=== PATIENT | male | born 1945 | race Caucasian/White ===

== ENCOUNTER 2020-09-23 10:40 | Inpatient (IN) | payer MEDICARE, BC ==
[~2020-09-23] VITALS: Ht 170.2 cm; Wt 102.3 kg
[~2020-09-23 10:40] MED LIST: ASPIRIN E.C. 8181 MG PO; CEPHALEXIN500 M1 PO; LIPITOR 40MG TA40 MG PO; [UNRECOGNIZED DRUG - OTHER]
[2020-09-23 11:22] LABS: ALBUMIN 3.5 gm/dL (3.5-5.0); BASO % 0.2 % (0.0-2.0); BILIRUBIN,TOTAL 1.1 mg/dL (0.0-1.0); CALCIUM 8.2 mg/dL (8.4-10.2); CREATININE, serum 0.88 (0.66-1.25); GRAN % 74.6 % (42.2-75.2); HEMATOCRIT 44.9 % (42.0-52.0); HEMOGLOBIN 16.1 g/dl (13.5-18.0); LYMPH # 0.8 (1.2-3.4); LYMPH % 15.4 % (20.0-51.0); MEAN CELL VOLUME 83 fl (80.0-100.0); MEAN CORPUSCULAR HEMOGLOBIN 30 pg (27.0-31.0); MEAN CORPUSCULAR HGB CONC 36 g/dl (33.0-37.0); MEAN PLATELET VOLUME 10.9 fl (7.4-10.4); MONO # 0.5 (0.1-0.6); MONO % 8.5 % (1.7-9.3); PLATELET COUNT 165 K/mm3 (130-400); POTASSIUM 4.1 mmol/L (3.4-5.0); RED BLOOD COUNT 5.41 M/mm3 (4.20-5.60)
[2020-09-23 11:36] LABS: TROPONIN-I 0.02 ng/mL (0.000-0.035)
[2020-09-23 17:51] VITALS: BP 130/72; PULSE 81; TEMP 98.3
[2020-09-23] MEDS ORDERED: COZAAR 50MG50 MG/TAB PO (19:58)
[2020-09-23] MEDS ORDERED: VITAMIND3 5000 PO (19:59)
[2020-09-23] MEDS ORDERED: MASON NATURAL1200 MG PO (20:00)
[2020-09-23] MEDS ORDERED: THE MEDICINE S200 M2 PO (20:01)
[2020-09-23 20:46] VITALS: BP 137/72; PULSE 76; TEMP 97.7
[2020-09-23 23:35] VITALS: BP 130/69; PULSE 87; TEMP 98
[2020-09-24] VITALS (7 sets, daily range): BP systolic 126–150; BP diastolic 66–78; PULSE 76–92; TEMP 97.5–99
[2020-09-24 00:28] LABS: MUCOUS Present /lpf; PH 5 (5-8); SQUAMOUS EPITHELIAL 0-2 /hpf; URINE APPEARANCE Hazy; URINE BACTERIA Rare /hpf; URINE BILIRUBIN Negative (NEGATIVE); URINE BLOOD 1+ (NEGATIVE); URINE COLOR Yellow; URINE GLUCOSE 3+ (NEGATIVE); URINE KETONE Negative (NEGATIVE); URINE LEUKOCYTE ESTERASE Negative (NEGATIVE); URINE NITRATE Negative (NEGATIVE); URINE PROTEIN(semi-quant) 1+ (NEGATIVE); URINE RBC 0-2 /hpf; URINE UROBILINOGEN Negative (NEGATIVE)
[2020-09-24 00:40] LABS: COLLECTION METHOD CLEAN CATCH
--- NOTE | 2020-09-24 05:38 | NUR ---
PT HAD UNEVENTFUL NIGHT, 02 5L OXYMASK SATURATING OVER 94 PERCENT. PT DISPLAYS MILD DYSPNEA ON EXERTION AND OF YET NON PRODUCTIVE COUGH, PT DENIES PAIN,N,V,D AND HAS REMAINED AFEBRILE. PT STATES " I FEEL MUCH BETTER FROM PREVIOUS DAYS." THIS NURSE REVIEWED POC WITH PT AND , TELEPHONICALLY, ALL QUESTIONS ANSWERED. PT EXPRESSES NO ADDITIONAL NEEDS AT THIS TIME.
[2020-09-24 08:09] LABS: CREATININE, serum 0.86 (0.66-1.25); POTASSIUM 4.4 mmol/L (3.4-5.0)
--- NOTE | 2020-09-24 09:05 | NUR ---
The patient is COVID positive. SW contacted the patient to discuss discharge plan. The patient lives in [place] with his , Angie (ph#[phone]). He reports independence with ADLs and does not have any DME. The patient's PCP is Dr. Ney Singh and he receives his medications from [facility] in [facility]. He reports no difficulties obtaining his meds. The patient does not have a DPOA-HC in EMR, but he states that he does have one completed and that the form is at home. He states that his designated his . The patient plans to return home with his upon discharge. He is currently on 5 liters of oxygen. SW to continue to monitor. *Discharge plan: home with *
--- NOTE | 2020-09-24 09:11 | NUR ---
Pt assessment complete. Pt is sitting on the side of the bed, he is A/O x4. His breathing is even and unlabored on 5L O2 via OM, switched to NC for breakfast. Pt denies SOB at this time. He denies any pain. Reports he is going to attempt to ambulate in his room more frequently today. Denies diarrhea. NO further needs at this time. Call light within reach.
--- NOTE | 2020-09-24 18:58 | NUR ---
Pt now on airvo. Discussed Covid and breathing issues with patient and updated pt's family. Pt does not feel SOB despite requiring higher oxygen. No pain through the day. Continues to have a good appetite, no diarrhea. POC discussed with patient who verbalizes understanding. Denies needs at this time. Call light within reach.
--- NOTE | 2020-09-24 21:13 | NUR ---
daughter kay updated on pt status.
--- NOTE | 2020-09-24 21:36 | NUR ---
ALERT AND OX4. DENIES ANY PAIN, SOA OR DIZZY. STATES FEELS BETTER SINCE NOT RUNNING FEVERS ANYMORE. POC DICUSSED. PM MEDS GIVEN. CALL LIGHT WI REACH. REMAINS ON AIRVO. NEEDS MET.
[2020-09-25 03:43] VITALS: BP 126/69; PULSE 75; TEMP 98
--- NOTE | 2020-09-25 05:00 | NUR ---
RESTED THOUGH THE NIGHT WITHOUT INCIDENT. NEEDS MET .
[2020-09-25 08:41] VITALS: BP 132/71; PULSE 76; TEMP 98.3
--- NOTE | 2020-09-25 10:56 | NUR ---
Patient laying with his head at the opposite end of the bed because that was more comfortable for him. Patient is wanting airvo taken off and feels that it is interfering with his sleep, but understands it cannot come off. This RN and Dr. Gutierrez explained to the patient that he needed the airvo. Patient has no other complaints at this time.
[2020-09-25 12:47] VITALS: BP 129/68; PULSE 79; TEMP 97.8
[2020-09-25 13:12] LABS: ARTERIAL BLD GAS O2 SATURATION 96.4 % (92-100); ARTERIAL BLD GAS TCO2 CT 25.5; ARTERIAL BLOOD GAS BASE EXCESS 1.4 (-2-2); ARTERIAL BLOOD GAS HCO3 24.5 meq/L (22-26); ARTERIAL BLOOD GAS PCO2 34.8 mmHg (35-45); ARTERIAL BLOOD GAS PO2 79.3 mmHg (80-100); ARTERIAL BLOOD GAS pH 7.47 (7.35-7.45)
[2020-09-25 16:00] VITALS: BP 151/73; PULSE 85; TEMP 98.9
--- NOTE | 2020-09-25 18:48 | NUR ---
Patient has not called for anything today. Patient was started on remdesivir and handled it well. Patient was assisted to the recliner by this RN without any difficulties. The patient's did call 3 times for updates, and his daughter called 4 times. Patient's family mentioned that they would like for him to be transferred to [facility]. Dr. Gutierrez was notified of this. Family was reassured that patient was handling treatments well at this time.
--- NOTE | 2020-09-25 19:05 | NUR ---
Received report from Leann. Patient awake, sitting in the recliner. No needs at this time.
[2020-09-25 19:58] VITALS: BP 133/58; PULSE 79; TEMP 98.7
--- NOTE | 2020-09-25 21:00 | NUR ---
Patient states that he will sleep tonight in the recliner. He is still on Airvo at 45L. Noted to have +1 BLE edema and he states that is started only today. Asked patient if the hospitalist who made their rounds awhile ago was aware about this and he said no. He said he might have the edema due to the [place] that he ate awhile ago. He is asking for sleeping pills as well. Called Carmela DOMINGUEZ and she ordered Melatonin and krishna hose. Explained to patient the orders but he refused to wear the tedhose saying the swelling is going down.
[2020-09-25 23:33] VITALS: BP 118/62; PULSE 80; TEMP 98.2
[2020-09-26 03:35] VITALS: BP 122/71; PULSE 76; TEMP 98
--- NOTE | 2020-09-26 05:58 | NUR ---
Patient states his sleep was better tonight. He is still on Airvo at 45L. He did have bath wipes this morning. Gown was changed. He denies pain.
[2020-09-26 08:23] VITALS: BP 131/66; PULSE 79; TEMP 98.1
--- NOTE | 2020-09-26 08:35 | NUR ---
Scheduled medications given. Shift assessment preformed. Patient currently requiring 45 L of O2 via airvo. Dry cough noted when patient is deep breathing. Patient denies any N/V/D or pain. No skin issues noted. VSS. Will continue to monitor. Call light in reach.
[2020-09-26 12:00] VITALS: BP 135/74; PULSE 78; TEMP 98
--- NOTE | 2020-09-26 18:00 | NUR ---
Patient has had a good day. Scheduled medications given. Remdesvir started. Dr. Carrillo updated on patient's status. Patient still requiring 45L of O2 via airvo. VSS. Patient denies any pain, discomfort, or further needs at this time. Will continue to monitor. Call light in reach.
[2020-09-26 20:02] VITALS: BP 155/67; PULSE 78; TEMP 98.3
[2020-09-27] VITALS (7 sets, daily range): BP systolic 122–146; BP diastolic 62–79; PULSE 64–85; TEMP 97.8–98.5
--- NOTE | 2020-09-27 07:00 | NUR ---
Patient had unventful night. He is still on Airvo at 45L. He states he was able to sleep well tonight. He has been in the recliner most of the day and sleep in there. He denies pain.
--- NOTE | 2020-09-27 08:34 | NUR ---
Pt assessment complete. Pt is ambulating from the bathroom at this time. He is A/O x4. His breathing is tachypneic, SOB on exertion. Continues on the Airvo. Discussed with patient about resting when feeling winded. He denies any pain. No N/V/D. No further needs.
--- NOTE | 2020-09-27 18:26 | NUR ---
Uneventful day, patient reports he feels more wore out today. Continues on Airvo. No pain throughout the day. Needs met, call light within reach.
[2020-09-28 04:53] VITALS: BP 141/70; PULSE 88; TEMP 98.6
--- NOTE | 2020-09-28 05:53 | NUR ---
Patient slepy in reclining cahir the whole night. He used airvo at 45L @ 30%. He denies pain or SOB. He gets up to the bathroom by himself. No complains noted overnight. Call light is within reach. Continue to follow.
[2020-09-28 08:40] VITALS: BP 142/73; PULSE 84; TEMP 98.1
--- NOTE | 2020-09-28 08:45 | NUR ---
SHIFT ASSESSMENT COMPLETED. IV TO RIGHT FOREARM IS PATENT. PT SITTING COMFORTABLY IN CHAIR EATING BREAKFAST. PT DENIES ANY PAIN OR SOB. LUNG SOUNDS CLEAR TO AUSCULTATION IN ALL LOBES. PT DENIES BREATHING FEELING LABORED. ON AIRVO AT 35L/45%. BOWEL SOUNDS ACTIVE IN ALL FOUR QUADRANTS. HEART RATE AND RHYTHM REGULAR. PULSES 2+. MILD +1 EDEMA TO BILATERAL LOWER EXTREMITIES, TRICE HOSE ARE ON. WILL CONTINUE TO MONITOR.
[2020-09-28 10:54] LABS: HEMATOCRIT 45.5 % (42.0-52.0); HEMOGLOBIN 15.9 g/dl (13.5-18.0); MEAN CELL VOLUME 85 fl (80.0-100.0); MEAN CORPUSCULAR HEMOGLOBIN 30 pg (27.0-31.0); MEAN CORPUSCULAR HGB CONC 35 g/dl (33.0-37.0); MEAN PLATELET VOLUME 10.3 fl (7.4-10.4); PLATELET COUNT 376 K/mm3 (130-400); RED BLOOD COUNT 5.37 M/mm3 (4.20-5.60); REDCELL DISTRIBUTION WIDTH-CV 13.2 % (11.5-14.5)
[2020-09-28 11:00] LABS: CREATININE, serum 0.74 (0.66-1.25); POTASSIUM 4.2 mmol/L (3.4-5.0)
[2020-09-28 11:20] LABS: LYMPHOCYTE 9 % (20.0-51.0); NEUTROPHILS 86 % (42.0-75.2); PLATELET ESTIMATE NORMAL (NORMAL)
[2020-09-28 11:53] VITALS: BP 145/81; PULSE 74; TEMP 98.5
[2020-09-28 16:14] VITALS: BP 135/71; PULSE 76; TEMP 98
--- NOTE | 2020-09-28 17:13 | NUR ---
PT RESTING COMFORTABLY IN CHAIR. IV ANTIBIOTICS ADMINISTERED PER ORDERS. AIRVO BEING TITRATED DOWN, IS AT 45L/49% CURRENTLY. PT DENIES ANY PAIN OR DISCOMFORT.
[2020-09-28 20:29] VITALS: BP 125/60; PULSE 69; TEMP 98.1
[2020-09-28 23:52] VITALS: BP 137/66; PULSE 80; TEMP 97.9
[2020-09-29 04:01] VITALS: BP 114/56; PULSE 60; TEMP 97.5
--- NOTE | 2020-09-29 05:36 | NUR ---
PT AFEBRILE OVER NIGHT, VSS, 02 AIRVO 45L FIO2 49 PERCENT. PT DENIES PAIN,N,V,D. PT CONTINUES WITH MILDLY PRODUCTIVE COUGH. PT EXPRESSES NO ADDITONAL NEEDS AT THIS TIME. CALL LIGHT WITHIN REACH.
[2020-09-29 08:38] VITALS: BP 144/69; PULSE 70; TEMP 98.3
--- NOTE | 2020-09-29 09:49 | NUR ---
PT RESTING COMFORTABLY IN CHAIR. IV IS PATENT. MORNING MEDICATIONS GIVEN. LUNG SOUNDS ARE DIMENISHED UPON AUSCULTATION. BOWEL SOUNDS ARE PRESENT IN ALL FOUR QUADRANTS. HEART RATE AND RHYTHM ARE NORMAL. AIRVO IS SET AT 40L/55%. PATIENT DENIES ANY PAIN OR SOB. +1 EDEMA ON BILATERAL LOWER LEGS. WILL CONTINUE TO MONITOR.
[2020-09-29 12:36] VITALS: BP 141/65; PULSE 79; TEMP 98
--- NOTE | 2020-09-29 14:26 | NUR ---
The patient is down to 5 liters of oxygen now. SW contacted the patient's , Angie, to follow up and review d/c plan. Angie is glad the patient is down to 5 liters of oxygen and states that she has no questions or concerns for SW at this time. She states plan is still for the patient to return back home with her upon discharge. SW to continue to follow. *Discharge plan: home with .
[2020-09-29 18:14] VITALS: BP 160/58; PULSE 85; TEMP 97.9
[2020-09-30 00:24] VITALS: BP 122/56; PULSE 73; TEMP 98.4
[2020-09-30 03:48] VITALS: BP 117/55; PULSE 75; TEMP 98.3
--- NOTE | 2020-09-30 06:07 | NUR ---
PT HAD UNEVENTFUL NIGHT, PT REMAINED AFEBRILE, DENIES PAIN,N,V,D. 02 5L HIGH FLOW NC SATURATING 90-93 PERCENT. PT EXPRESSES NO ADDITIONAL NEEDS AT THIS TIME. CALL LIGHT WITHIN REACH.
[2020-09-30 08:40] VITALS: BP 144/72; PULSE 79; TEMP 99
--- NOTE | 2020-09-30 09:28 | NUR ---
PT RESTING COMFORTABLY IN CHAIR. IV IS PATENT. LUNG SOUNDS ARE DIMINISHED UPON AUSCULTATION. MORNING MEDS GIVEN. EDEMA TO BILATERAL LOWER LEGS +1. O2 IS ON 5L AD PATIENT IS SATURATION IS AT 91%.. NO COMPLAINTS OF PAIN REPORTED. WILL CONTINUE TO MONITOR.
[2020-09-30 11:45] VITALS: BP 159/67; PULSE 84; TEMP 98.4
[2020-09-30 16:28] VITALS: BP 154/72; PULSE 91; TEMP 98.4
[2020-09-30 21:00] VITALS: BP 124/63; PULSE 80; TEMP 98.4
[2020-10-01 01:30] VITALS: BP 124/64; PULSE 73; TEMP 98.2
[2020-10-01 05:45] VITALS: BP 130/60; PULSE 83; TEMP 98.3
[2020-10-01 06:41] LABS: HEMOGLOBIN 16.3 g/dl (13.5-18.0); MEAN CELL VOLUME 87 fl (80.0-100.0); MEAN CORPUSCULAR HEMOGLOBIN 30 pg (27.0-31.0); MEAN CORPUSCULAR HGB CONC 34 g/dl (33.0-37.0); MEAN PLATELET VOLUME 10.7 fl (7.4-10.4); PLATELET COUNT 393 K/mm3 (130-400); REDCELL DISTRIBUTION WIDTH-CV 13.2 % (11.5-14.5)
[2020-10-01 06:46] LABS: CALCIUM 9.3 mg/dL (8.4-10.2); CREATININE, serum 0.84 (0.66-1.25); MAGNESIUM 2.1 mg/dL (1.6-2.3); POTASSIUM 4.4 mmol/L (3.4-5.0)
[2020-10-01 08:09] VITALS: BP 145/77; PULSE 99; TEMP 98
[2020-10-01 08:18] LABS: BAND 4 % (0-10); LYMPHOCYTE 13 % (20.0-51.0); METAMYELOCYTE 6 % (0-0); NEUTROPHILS 61 % (42.0-75.2); PLATELET ESTIMATE NORMAL (NORMAL)
[2020-10-01 11:59] VITALS: BP 135/72; PULSE 97; TEMP 97.9
[2020-10-01 16:06] VITALS: BP 131/71; PULSE 106; TEMP 98.2
[2020-10-01 19:33] VITALS: BP 147/73; PULSE 95; TEMP 98.2
--- NOTE | 2020-10-01 21:21 | NUR ---
Pt has been in a good spirit. He has been usin IS pretty frequent. Currently on 5 L sating at 93. Will continue to monitor.
[2020-10-02 00:32] VITALS: BP 138/65; PULSE 76; TEMP 98.1
[2020-10-02 03:00] VITALS: BP 108/51; PULSE 80; TEMP 98.1
[2020-10-02 08:00] VITALS: BP 119/70; PULSE 81; TEMP 97.6
--- NOTE | 2020-10-02 08:00 | NUR ---
Patient sitting up in a chair in front of the TV. A&Ox3. VSS 5L NC O2. No reported SOB. Patient independent in the room. Denies pain and disomfort. Droplet/contact precautions in place. No further needs expressed from the patient. Call light within reach
[2020-10-02 11:31] VITALS: BP 131/69; PULSE 93; TEMP 97.7
--- NOTE | 2020-10-02 12:12 | NUR ---
An exercise oximetry was ordered. RT notified SW that the patient is requiring 8 liters of oxygen with ambulation. The patient is not ready for d/c.
[2020-10-02 15:39] VITALS: BP 132/77; PULSE 91; TEMP 98.1
--- NOTE | 2020-10-02 18:23 | NUR ---
Patient had an uneventful day. VSS 5L NC O2. No reported SOB. IV CDI. Denies pain and discomfort. No further needs expressed from the patient. Call light within reach. Droplet/contact precautions in place.
[2020-10-02 20:09] VITALS: BP 131/74; PULSE 93; TEMP 98.1
--- NOTE | 2020-10-02 22:56 | NUR ---
Patient sitting up in the chair upon enter the room. Shift assessment completed. Patient alert and oriented. Patient denies any pain or discomfort. Denies SOB or dyspnea at this time. Patient currently on 5L oxygen via NC. Breathing even and unlabored. All scheduled meds given per MAY. Call light within reach. Will continue to monitor.
[2020-10-03 00:15] VITALS: BP 123/64; PULSE 72; TEMP 97.9
[2020-10-03 04:13] VITALS: BP 127/62; PULSE 84; TEMP 97.9
[2020-10-03 07:55] VITALS: BP 150/65; PULSE 110; TEMP 97.9
--- NOTE | 2020-10-03 09:41 | NUR ---
Pt awake and alert upon entry, sitting in the recliner, no C/O pain at this time, on 8 LPM NC. Shift assessments complete, left Pt in recliner, call light in reach.
[2020-10-03 10:58] VITALS: BP 176/77; PULSE 107; TEMP 97.8
[2020-10-03 15:39] VITALS: BP 126/58; PULSE 92; TEMP 97.9
[2020-10-03 21:33] VITALS: BP 131/77; PULSE 100; TEMP 98.3
--- NOTE | 2020-10-03 22:05 | NUR ---
Patient assessed around 2100. Prior to assessement, RT stated that patient was on oxygen at 6 L/min via NC. During assessment, oxygen level 88-90%. Increased oxygen at 7 L/min via NC, and increased to 91-93%. RT updated. LS CTA in upper lobes, diminished in lower. Denies having SOB and dyspnea. Patient voices no questions, needs, or concerns at this time. Sitting up in chair with call light within reach.
[2020-10-04] VITALS (8 sets, daily range): BP systolic 107–149; BP diastolic 57–81; PULSE 81–108; TEMP 97.6–98.8
--- NOTE | 2020-10-04 05:24 | NUR ---
Patient continues to wear oxygen at 7 L/min. Denies having pain and discomfort. Voices on questions, needs, or concerns at this time. Call light within reach.
--- NOTE | 2020-10-04 08:34 | NUR ---
Pt awake and sitting in chair at bedside, no C/O pain at this time. Shift assessment complete, left Pt sitting with breakfast, call light in reach.
--- NOTE | 2020-10-04 22:26 | NUR ---
Patient sitting up in the chair upon enter the room. Shift assessment completed. Patient alert and oriented. Patient denies any pain or discomfort. Denies SOB or dyspnea while at rest. Patient currently on 7L oxygen via NC. Breathing even and unlabored. All scheduled meds given per MAY. Call light within reach. Will continue to monitor.
[2020-10-05 04:16] VITALS: BP 114/49; PULSE 92; TEMP 97.5
--- NOTE | 2020-10-05 05:50 | NUR ---
Patient on oxygen 5L via high flow NC this morning. No acute respiratory distress noted throughout the night. Call light within reach. Will continue to monitor.
[2020-10-05 07:51] LABS: HEMATOCRIT 44.2 % (42.0-52.0); HEMOGLOBIN 15.2 g/dl (13.5-18.0); MEAN CELL VOLUME 87 fl (80.0-100.0); MEAN CORPUSCULAR HEMOGLOBIN 30 pg (27.0-31.0); MEAN CORPUSCULAR HGB CONC 34 g/dl (33.0-37.0); MEAN PLATELET VOLUME 10.7 fl (7.4-10.4); PLATELET COUNT 304 K/mm3 (130-400); RED BLOOD COUNT 5.07 M/mm3 (4.20-5.60); REDCELL DISTRIBUTION WIDTH-CV 13.5 % (11.5-14.5)
[2020-10-05 08:18] LABS: C-REACTIVE PROTEIN 4.4 mg/dL (0.0-0.9); CALCIUM 9.2 mg/dL (8.4-10.2); CREATININE, serum 1.15 (0.66-1.25); MAGNESIUM 2.2 mg/dL (1.6-2.3); POTASSIUM 4.7 mmol/L (3.4-5.0)
--- NOTE | 2020-10-05 08:24 | NUR ---
Pt awake and sitting in chair at bedside, no C/O pain at this time, currently at 5 LPM, 92% saturation. Shift assessment complete, left Pt call light in reach.
[2020-10-05 09:00] VITALS: BP 123/55; PULSE 102; TEMP 98.3
[2020-10-05 09:27] LABS: BAND 1 % (0-10); EOSINOPHIL 1 % (0-4); LYMPHOCYTE 21 % (20.0-51.0); MYELOCYTE 2 % (0-0); NEUTROPHILS 60 % (42.0-75.2); PLATELET ESTIMATE NORMAL (NORMAL)
--- NOTE | 2020-10-05 10:33 | NUR ---
SW staffed with the hospitalist about whether the patient would be a candidate for [facility]. The patient's O2 needs remain high and have not been able to titrate down. JENNIFER contacted and faxed a referral Hesham at [facility]. Awaiting screen.
--- NOTE | 2020-10-05 11:01 | NUR ---
pt was not put on room air for this test. He was ambulated on 5lpm/nc for approximatly 50 feet. Lowest spo2 was 89% on 5lpm/nc which the patient recovered to 93% within 30 seconds of sitting down. Pt tolerated well with minimaL SOB noted.
[2020-10-05] MEDS ORDERED: RT Albuterol HFA MDI IH ×2 (11:25)
[2020-10-05] MEDS ORDERED: PROAIR HFA0.09 MG/AC IH (11:27)
[2020-10-05] MEDS ORDERED: OXYGEN (11:29)
[2020-10-05 11:50] VITALS: BP 111/60; PULSE 102; TEMP 98.7
--- NOTE | 2020-10-05 12:06 | NUR ---
Hesham, at [facility], reports that they would be able to accept the patient at their [place] location. JENNIFER notified the hospitalist. The hospitalist ordered another exercise ox and the patient qualified for 5 liters of oxygen and is able to go home. The hospitalist recommends home health. JENNIFER contacted the patient's , Angie, to review the above. Angie is in agreement to the plan. She chose [facility] to obtain the oxygen and states that she will mushroom picker the oxygen before coming to mushroom picker the patient. JENNIFER informed her of the different home health agencies that serve [place], based off of Medicare.gov. Angie chose [facility]. JENNIFER contacted and faxed and emailed the patient's oxygen order to Caryl at [facility]. Caryl requests a mushroom picker time after 1500. JENNIFER notified the patient's of this. JENNIFER contacted and faxed a referral to Carri at [facility]. Awaiting screen.
--- NOTE | 2020-10-05 13:27 | NUR ---
Carri, at [facility], reports that they are able to accept the patient for services and that she will be contacting the patient's today to set up a visit with him.
--- NOTE | 2020-10-05 14:16 | NUR ---
The patient is to discharge back home with his today, 10/05, with home health services for retirement/PT/OT from [facility]. SW notified and faxed d/c orders to Carri at [facility]. No additional needs at this time.
--- NOTE | 2020-10-05 16:00 | NUR ---
Pt discharged to home, discussed discharge information with Pt and spouse.. Escorted Pt to entrance, assisted into vehicle. Pt left with spouse via private transportation.
== END 2020-10-05 16:00 | disposition home or self-care (01) | DRG 177 ==
LOC: COL.ER 10:40 → MEDICAL 12:20
PROVIDERS: Emergency Medicine; Internal Medicine
PROC: XW033E5 Introduction of Remdesivir Anti-infective into Peripheral Vein, Percutaneous Approach, New Technology Group 5 (ICD-10-PCS; principal; 2020-09-23)
DX: U07.1 COVID-19 (principal); J96.01 Acute respiratory failure with hypoxia; J12.82 Pneumonia due to coronavirus disease 2019; R73.9 Hyperglycemia, unspecified; I10 Essential (primary) hypertension; Z79.82 Long term (current) use of aspirin
CPT/HCPCS: 99222-AI; 99232-AI; 99233-AI; 99239; A9284; J0696; J1100; J1650; J7050; J8540

== ENCOUNTER 2020-10-14 17:32 | Inpatient (IN) | payer MEDICARE, BC ==
[~2020-10-14] VITALS: Ht 182.9 cm; Wt 99.2 kg
[~2020-10-14 17:32] MED LIST changes: +COZAAR 50MG50 MG/TAB PO; +MASON NATURAL1200 MG PO; +OXYGEN; +PROAIR HFA0.09 MG/AC IH; +RT Albuterol HFA MDI IH; +THE MEDICINE S200 M2 PO; +VITAMIND3 5000 PO
[2020-10-14 18:41] LABS: HEMATOCRIT 46.1 % (42.0-52.0); HEMOGLOBIN 15.5 g/dl (13.5-18.0); MEAN CELL VOLUME 87 fl (80.0-100.0); MEAN CORPUSCULAR HEMOGLOBIN 29 pg (27.0-31.0); MEAN CORPUSCULAR HGB CONC 34 g/dl (33.0-37.0); MEAN PLATELET VOLUME 9.9 fl (7.4-10.4); PLATELET COUNT 242 K/mm3 (130-400); RED BLOOD COUNT 5.28 M/mm3 (4.20-5.60); REDCELL DISTRIBUTION WIDTH-CV 13.2 % (11.5-14.5)
[2020-10-14 18:57] LABS: ALANINE AMINOTRANSFERASE 179 U/L (4-49); ALBUMIN 3.7 gm/dL (3.5-5.0); ALKALINE PHOSPHATASE 126 U/L (50-136); AST,SGOT 71 U/L (15-37); BILIRUBIN,TOTAL 0.5 mg/dL (0.0-1.0); BLOOD UREA NITROGEN 16 mg/dL (9-20); CALCIUM 9.5 mg/dL (8.4-10.2); CARBON DIOXIDE 27 mmol/L (22-30); CHLORIDE 100 mmol/L (98-107); CREATININE, serum 0.85 (0.66-1.25); GLUCOSE 129 mg/dL (74-106); POTASSIUM 4.5 mmol/L (3.4-5.0); TOTAL PROTEIN 7.9 gm/dL (6.4-8.2)
[2020-10-14 18:59] LABS: ANION GAP 10 mmol/L (7-16); SODIUM 137 mmol/L (137-145)
[2020-10-14 19:21] LABS: TROPONIN-I < 0.012 ng/mL (0.000-0.035)
[2020-10-14 19:23] LABS: BAND 5 % (0-10); EOSINOPHIL 2 % (0-4); LYMPHOCYTE 21 % (20.0-51.0); MYELOCYTE 2 % (0-0); NEUTROPHILS 62 % (42.0-75.2); PLATELET ESTIMATE NORMAL (NORMAL)
--- NOTE | 2020-10-14 23:46 | NUR ---
Vancomycin Initial Dosing Pharmacy Note Ordering provider: Angel Gallagher MD Indication/duration: PNA - 7 days Relevant comorbidities: HTN, recent COVID LABS: WBC = 10.5, RVP = negative, spO2 = 93% on 5 L, T = 98.3 F Recommendation: Will draw troughs and follow levels. Loading dose: 2 grams Maintenance dose: 1.5 grams every 12 hours Trough goal: 15-20 ug/mL
[2020-10-15] VITALS (7 sets, daily range): BP systolic 112–163; BP diastolic 48–84; PULSE 95–119; TEMP 97.4–98.9
[2020-10-15] MEDS ORDERED: CLARITIN 1010 MG/TAB PO (01:38)
--- NOTE | 2020-10-15 01:55 | NUR ---
PT ARRIVED ON UNIT AT THIS TIME. ADMISSION ASSESSMENTS COMPLETED. PT ORIENTED TO ROOM. PT ON OXYGEN 8L HIGH FLOW NC AND O2 SATURATION IS 97%. PT HAS NO COMPLAINTS OF PAIN. PT HAS IV ANTIBIOTICS RUNNING AT THIS TIME. CALL LIGHT WITHIN REACH. WILL CONTINUE TO MONITOR.
[2020-10-15 05:07] LABS: COLLECTION METHOD CLEAN CATCH
[2020-10-15 05:13] LABS: PH 6 (5-8); SQUAMOUS EPITHELIAL None Seen /hpf; URINE APPEARANCE Clear; URINE BACTERIA None Seen /hpf; URINE BILIRUBIN Negative (NEGATIVE); URINE BLOOD Negative (NEGATIVE); URINE COLOR Yellow; URINE GLUCOSE Negative (NEGATIVE); URINE KETONE Negative (NEGATIVE); URINE LEUKOCYTE ESTERASE Negative (NEGATIVE); URINE NITRATE Negative (NEGATIVE); URINE PROTEIN(semi-quant) Negative (NEGATIVE); URINE RBC 0-2 /hpf; URINE UROBILINOGEN Negative (NEGATIVE)
--- NOTE | 2020-10-15 07:50 | NUR ---
PT PLEASANT AOX4, DENIES PAIN, PT SET UP FOR BREAKFAST, ANTIBIOTICS INFUSING, OTHER MEDICATIONS GIVEN, ASSESSMENT PERFORMED, NO OTHER NEEDS. INFECTION CONTROL NURSE CLEARED PT FROM ISOLATION, PT ALERTED TO THIS AND HE SAID HE WOULD CALL HIS TO VISIT FOR HIS VISITOR, NO OTHER NEEDS
--- NOTE | 2020-10-15 09:42 | NUR ---
From prior records patient reported COV -like symptoms began September 16 with positive test recorded September 22. Patient had been known exposure to positive individuals and reported having no COVID immunization. Patient is 29 days from reported symptom onset and 23 days post first known positive test. Will discontinue COVID isolation precautions. Caution staff reminder for patient to apply mask when staff in room and staff to wear their masks at all times. Rajni Rahman RN
--- NOTE | 2020-10-15 10:48 | NUR ---
CONSULT CALLED FOR ID
--- NOTE | 2020-10-15 11:56 | NUR ---
JENNIFER's met with the patient and his , Angie (ph#[phone]), to discuss discharge plan and re-admit. The patient recently discharged from the hospital on 10/02 and returned home with his with home oxygen from [facility] and home health services from [facility] for half-way/PT/OT. The patient states that things at home were fine, but his oxygen sats kept dropping. He then presented back to the ER. The patient lives in [place] with his . He reports independence with ADLs and does not have any assistive devices. He has home oxygen from [facility] and home health servics from [facility]. JENNIFER attempted to contact Hakan at [facility]. JENNIFER left him a voicemail and faxed over updates. The patient's PCP is Dr. Ney Singh and he receives his medications from [facility] in [place]. He reports no difficulties obtaining his meds. The patient does not have a DPOA-HC in EMR, but he states that he does have one completed and that it designates his . The patient plans to return home with his upon discharge and resume home health services from [facility]. The hospitalist then notified JENNIFER that he would like a referral sent to [facility]. The hospitalist states that he will talk to the patient and his about his recommendation. JENNIFER contacted and faxed a referral to Hesham at [facility]. Awaiting screen.
--- NOTE | 2020-10-15 18:11 | NUR ---
PT ON 5L NC, REPORTS SOB WITH ACTIVITY, DENIES PAIN, VITALS STABLE, INSULIN GIVEN, EDUCATED ON SIDE EFFECTS OF SOLUMEDROL WITH INC SUGARS. PT HAS GOOD APPETITE, PT FAMILY OPEN TO TRANSFER, NO OTHER NEEDS
--- NOTE | 2020-10-15 23:50 | NUR ---
Resting quielty, no c/o pain, respirations even and unlabored, shortness of breath observed with ambulation, alert, oriented x 4, sinus tachy on telementry, VS stable, O@5L per NC in use, no s/s of hypo/hyper glycemia, continues on IV solumedrol, will continue to monitor.
[2020-10-16 04:07] VITALS: BP 127/64; PULSE 107; TEMP 98.1
[2020-10-16 06:56] LABS: HEMOGLOBIN 13.8 g/dl (13.5-18.0); MEAN CELL VOLUME 88 fl (80.0-100.0); MEAN CORPUSCULAR HEMOGLOBIN 30 pg (27.0-31.0); MEAN CORPUSCULAR HGB CONC 34 g/dl (33.0-37.0); MEAN PLATELET VOLUME 10.2 fl (7.4-10.4); PLATELET COUNT 221 K/mm3 (130-400); RED BLOOD COUNT 4.65 M/mm3 (4.20-5.60); REDCELL DISTRIBUTION WIDTH-CV 13.2 % (11.5-14.5)
[2020-10-16 07:04] LABS: ALBUMIN 3.3 gm/dL (3.5-5.0); BILIRUBIN,TOTAL 0.4 mg/dL (0.0-1.0); CREATININE, serum 0.93 (0.66-1.25); POTASSIUM 4.5 mmol/L (3.4-5.0); TOTAL PROTEIN 6.7 gm/dL (6.4-8.2)
[2020-10-16 07:56] LABS: BAND 13 % (0-10); LYMPHOCYTE 13 % (20.0-51.0); NEUTROPHILS 70 % (42.0-75.2)
[2020-10-16 07:57] LABS: PLATELET ESTIMATE NORMAL (NORMAL)
--- NOTE | 2020-10-16 08:00 | NUR ---
PT PLEASANT, AOX4, DISCONNECTED FROM ZOSYN, IV FLUSHED AND VANC HUNG. OTHER MEDICATIONS GIVEN, PT ORDERED BREAKFAST, INSULIN GIVEN, VITALS REVIEWED, ASSESSMENT PERFORMED, PT REPORTS LOSING OXYGEN TANK WHEN BROUGHT IN TO ED, NOTIFIED RT WHO DID NOT KNOW WHERE IT WAS. NOTIFYING SEAMER.
[2020-10-16 08:34] VITALS: BP 137/68; PULSE 111; TEMP 97.5
--- NOTE | 2020-10-16 11:02 | NUR ---
Hesham, at [facility], reports that they are able to accept the patient today and are able to waive the Medicare 3 midnight rule. The accepting provider is Dr. Lindsay. [facility] requests a seed cone picker time at our hospital no earlier than 1744. JENNIFER met with the patient and his to update. The patient and his are in agreement to the plan. JENNIFER presented the EMS Consent Form to the patient. The patient signed the form. The patient and his report that the patient's portable oxygen tank and crate were left in the ER and staff has not been able to find it. The patient received his oxygen from [facility]. Imelda RODRIGUEZ, notified [facility]. The patient is to discharge today, 10/16, to [facility] in [place]. Transportation was scheduled at 1800, via [facility]. JENNIFER notified the patient, his , RN, and Hesham at [facility] of the time. They were all agreeable to the time. No additional needs at this time.
[2020-10-16 11:24] VITALS: BP 112/58; PULSE 109; TEMP 98.3
--- NOTE | 2020-10-16 11:37 | NUR ---
DA WISHES OF PT HAVING ECHO BEFORE DISCHARGE PASSED TO DR. HERNANDEZ, WILL PLACE ORDER
--- NOTE | 2020-10-16 12:16 | NUR ---
GAVE REPORT TO NURSE ELECTRIC FURNACE OPERATOR AT [facility] IN [place]. WOULD LIKE A CALL WHEN PT LEAVES OUR FACILITY. NUMBER FOR CALL BACK IS [phone].
[2020-10-16 17:01] VITALS: BP 125/65; PULSE 103; TEMP 98.6
--- NOTE | 2020-10-16 17:21 | NUR ---
PT HAVING LOWER PRESSURES, IGNACIO SHOOK NOTIFIED, ORDERED TO CONTINUE TO MONITOR AND RECHECK IN 1HR. PT DENIES PAIN, HAD MULTIPLE EPISODES OF COFFEE GROUND EMESIS TODAY. ONE EPISODE OF INCONTINENCE
--- NOTE | 2020-10-16 17:35 | NUR ---
PT EATING DINNER, INSULIN GIVEN ALONG WITH STEROID. PT HAD ONE EPISODE OF DIARRHEA TODAY, PT AOX4, DENIES PAIN, O2 AT 6LNC, AT BEDSIDE, PT READY FOR DISCHARGE, NO OTHER NEEDS
--- NOTE | 2020-10-16 18:01 | NUR ---
EMS ARRIVED TO ROOM, PT LEFT VIA STRETCHER WITH BELONGINGS, FOLLOWING AMBULANCE. [facility] NOTIFIED THAT PT HAD LEFT FACILITY.
[2020-10-17 18:36] LABS: ANA SCREEN with REFLEX Negative (Negative)
[2020-10-19 10:18] LABS: ANTISCLERODERMA-70 AB XXX
[2020-10-19 14:15] LABS: ANGIOTENSIN CONVERTING ENZYME 43 U/L (16 - 85)
[2020-10-20 19:18] LABS: C-ANCA 36 U/mL (0-99)
== END 2020-10-16 18:06 | DRG 177 ==
LOC: COL.ER 17:32 → MEDICAL 21:54
PROVIDERS: Emergency Medicine; Internal Medicine Pulmonary Disease; Nurse Practitioner Family; ADMIT Internal Medicine
DX: U07.1 COVID-19 (principal); J96.01 Acute respiratory failure with hypoxia; J84.9 Interstitial pulmonary disease, unspecified; R73.9 Hyperglycemia, unspecified; E78.5 Hyperlipidemia, unspecified; I10 Essential (primary) hypertension; R74.01 Elevation of levels of liver transaminase levels; J84.10 Pulmonary fibrosis, unspecified
CPT/HCPCS: 99223-AI; 99233-AI; 99239; J1100; J1650; J1815; J1956; J2543; J2930; J3260; J3370; J7030; J7050; Q9967

== ENCOUNTER 2021-05-24 15:09 | Emergency (ER) | payer MEDICARE, BC ==
[~2021-05-24] VITALS: Ht 170.2 cm; Wt 104.5 kg
[~2021-05-24 15:09] MED LIST changes: +CLARITIN 1010 MG/TAB PO
[2021-05-24 15:40] VITALS: TEMP 98.9
[2021-05-24] MEDS ORDERED: NORFLEX 10100 MG/TAB PO (18:08)
[2021-05-24 18:14] VITALS: BP 153/87; PULSE 81
== END 2021-05-24 18:23 | disposition home or self-care (01) ==
LOC: COL.ER 15:09
DX: S20.20XA Contusion of thorax, unspecified, initial encounter (principal); Z86.16 Personal history of COVID-19; W11.XXXA Fall on and from ladder, initial encounter; X50.1XXA Overexertion from prolonged static or awkward postures, initial encounter
CPT/HCPCS: A9284; J1885; J2360